=== PATIENT | male | born 1955 | race Caucasian/White ===

== ENCOUNTER 2018-11-24 16:17 | Outpatient (CLI) | payer MEDICARE, MEDICAID | END 2018-11-24 16:18 | disposition home or self-care (01) | LOC: C.RADIC 16:17 | DX: R05 Cough (principal) ==

== ENCOUNTER 2018-12-09 07:02 | Day surgery (SDC) | payer MEDICARE, MEDICAID ==
[2018-12-09] MEDS ORDERED: Lidocaine Hydrochloride 5 ML INJ ONE (09:21)
[2018-12-09] MEDS ORDERED: Propofol 10 mg/ml Inj (20 ML) ONE ×2 (09:21)
[2018-12-09] MEDS ORDERED: Lactated Ringer's 500 ML IV SCH (09:45)
[2018-12-09 12:33] VITALS: BP 93/43; PULSE 66; RESP 17; TEMP 98.4; O2SAT 99
== END 2018-12-09 11:15 | disposition home or self-care (01) ==
LOC: C.ENDO 07:02
PROVIDERS: ATTEND Internal Medicine Gastroenterology
DX: K64.0 First degree hemorrhoids (principal); R19.4 Change in bowel habit; I25.10 Atherosclerotic heart disease of native coronary artery without angina pectoris; I10 Essential (primary) hypertension; E78.5 Hyperlipidemia, unspecified; M19.90 Unspecified osteoarthritis, unspecified site
CPT/HCPCS: 45378; J2704; J7120